=== PATIENT | female | born 1940 | race Caucasian/White ===

== ENCOUNTER 2020-03-08 17:47 | Inpatient (IN) | payer MEDICARE ==
[~2020-03-08] VITALS: Ht 160 cm; Wt 90.0 kg
[2020-03-08] MEDS ORDERED: DEXAMETHASONE SOD PHOSPHATE 4 MG INJ IV ONE (18:00)
[2020-03-08] MEDS ORDERED: AZITHROMYCIN IV 500 MG in IV DEXTROSE 5% 250 ML IV ONE (18:00)
[2020-03-08] MEDS ORDERED: CEFTRIAXONE 1 G in IV DEXTROSE 5% 50 ML IV ONE (18:00)
[2020-03-08] MEDS ORDERED: ACETAMINOPHEN ES 500 MG TABLET PO ONE (18:00)
[2020-03-08] MEDS ORDERED: ATOR10TA PO (18:22)
[2020-03-08] MEDS ORDERED: CHOL2000 PO (18:22)
[2020-03-08] MEDS ORDERED: METO-357 PO (18:22)
[2020-03-08] MEDS ORDERED: LATA2.5D15 EACHEYE (18:22)
[2020-03-08 18:50] LABS: HEMOGLOBIN 14.1 g/dL (10.9-14.3); MEAN CORPUSCULAR HEMOGLOBIN 31.2 uug (24.7-32.8)
[2020-03-08 18:56] LABS: BASOPHILS % (AUTO) 0.1 % (0.0-2.0); HEMATOCRIT 41.5 % (31.2-41.9); LYMPHOCYTES # (AUTO) 0.8 K/uL (20.0-40.0); LYMPHOCYTES % (AUTO) 14.4 % (20.5-51.5); MEAN CORPUSCULAR HGB CONC 34 g/dL (32.3-35.6); MEAN CORPUSCULAR VOLUME 91.8 fL (75.5-95.3); MONOCYTES # (AUTO) 0.7 K/uL (2.0-10.0); NEUTROPHILS # (AUTO) 4.1 K/uL (1.8-8.9); NEUTROPHILS % (AUTO) 72.5 % (38.5-71.5); PLATELET COUNT (AUTO) 90 K/uL (179-408); RED BLOOD CELL COUNT(AUTO) 4.52 MIL/uL (3.63-4.92); WHITE BLOOD COUNT (AUTO) 5.7 K/uL (3.8-11.8)
[2020-03-08 19:05] LABS: BILIRUBIN,DIRECT 0.5 mg/dL (0.0-0.2); BILIRUBIN,TOTAL 1.2 mg/dL (0.2-1.0); CREATININE 1.1 mg/dL (0.6-1.3); MAGNESIUM 1.8 mg/dL (1.8-2.4); PHOSPHOROUS 2.9 mg/dL (2.5-4.9); TOTAL PROTEIN, SERUM 7.7 g/dL (6.4-8.2)
[2020-03-08] MEDS ORDERED: AZITHROMYCIN 500MG/ D5W 250ML IVPB **ER PYXIS ONLY IV ONE (19:06)
[2020-03-08] MEDS ORDERED: CEFTRIAXONE /D5W 50ML IVPB **ER PYXIS IV ONE (19:06)
[2020-03-08] MEDS ORDERED: ACETAMINOPHEN ES 500 MG TABLET ONE (19:06)
[2020-03-08] MEDS ORDERED: DEXAMETHASONE SOD PHOSPHATE 10 MG INJ ONE (19:06)
[2020-03-08 19:13] LABS: THYROID STIMULATING HORMONE 2.639 mIU/mL (0.358-3.740)
[2020-03-08 19:40] LABS: LYMPHOCYTES % (MANUAL) 14 % (20-40); MONOCYTES % (MANUAL) 13 % (2-10); NEUTROPHILS % (MANUAL) 73 % (42-75)
[2020-03-08] MEDS ORDERED: SWABABLE VALVE TRANSFER SET EA MC ONE (19:40)
[2020-03-08] MEDS ORDERED: IV NORMAL SALINE 250 ML IV ONE (19:41)
[2020-03-08] MEDS ORDERED: IOHEXOL 350 100 ML INFUS..BTL ONE (19:41)
--- NOTE | 2020-03-08 19:55 | NUR ---
Patient taken to CT, consent complete. Patient in no acute distress. COVID +
[2020-03-08] MEDS ORDERED: POTASSIUM CHLORIDE 20 MEQ TAB.PRT.SR PO ONE (20:45)
[2020-03-08] MEDS ORDERED: POTASSIUM CHLORIDE 20 MEQ TAB.PRT.SR ONE (21:08)
--- NOTE | 2020-03-08 21:22 | NUR ---
Patient in bed, no acute distress noted. VSS
--- NOTE | 2020-03-08 22:30 | NUR ---
All patient needs attended and met. No acute distress at this time. VSS. WIll continue to monitor patient. Frequent visual checks ongoing. Daughter updated regarding pending inpatient admission.
[2020-03-08] MEDS ORDERED: TEMAZEPAM 15 MG CAPSULE PO PRN (23:00)
[2020-03-08] MEDS ORDERED: MAGNESIUM HYDROXIDE 30 ML LIQUID UDC PO PRN (23:00)
--- NOTE | 2020-03-08 23:03 | NUR ---
Report to Adelina GONZALES on Tele. Pt. admitted to Telemetry , under care of Dr. Franks Belongs List completed
--- NOTE | 2020-03-08 23:35 | NUR ---
RECEIVED PT FROM ER VIA [facility]. UNDER DR. WHEATLEY. DX:COVID 19. PT IN NO ACUTE DISTRESS. PT ON ROOM AIR. BELONGING LIST DONE. CORRECTION ASSESSMENT DONE. ADMISSION PROCESS AND CARE PLAN INITIATED. SAFETY AND COMFORT PROVIDED. WILL CONTINUE TO MONITOR.
[2020-03-08] MEDS ORDERED: ALBUTEROL SULFATE 2.5 MG/3 ML NEBU NEB PRN (23:45)
[2020-03-08 23:59] VITALS: BP 133/67
[2020-03-09 04:20] VITALS: BP 112/67
[2020-03-09] MEDS: PANTOPRAZOLE SODIUM 40 MG TABLET.DR PO SCH (06:26)
--- NOTE | 2020-03-09 06:35 | NUR ---
PT SLEPT INTERMITTENTLY. PT IN NO ACUTE DISTRESS. IV INTACT. PT TOLERATING ROOM AIR. SAFETY AND COMFORT PROVIDED. WILL ENDORSE TO INCOMING NURSE FOR CONTINUITY OF CARE.
[2020-03-09 07:13] LABS: BASOPHILS % (AUTO) 0.1 % (0.0-2.0); HEMOGLOBIN 13.5 g/dL (10.9-14.3); LYMPHOCYTES # (AUTO) 0.5 K/uL (20.0-40.0); LYMPHOCYTES % (AUTO) 13.3 % (20.5-51.5); MEAN CORPUSCULAR HEMOGLOBIN 31.6 uug (24.7-32.8); MEAN CORPUSCULAR HGB CONC 35 g/dL (32.3-35.6); MEAN CORPUSCULAR VOLUME 91.4 fL (75.5-95.3); MONOCYTES # (AUTO) 0.2 K/uL (2.0-10.0); MONOCYTES % (AUTO) 5.9 % (0.0-11.0); NEUTROPHILS # (AUTO) 2.8 K/uL (1.8-8.9); NEUTROPHILS % (AUTO) 80.7 % (38.5-71.5); PLATELET COUNT (AUTO) 84 K/uL (179-408); RED BLOOD CELL COUNT(AUTO) 4.27 MIL/uL (3.63-4.92); WHITE BLOOD COUNT (AUTO) 3.5 K/uL (3.8-11.8)
[2020-03-09] MEDS ORDERED: ALBUTEROL SULFATE 8 GM HFA.AER.AD IH PRN (07:45)
[2020-03-09 07:51] LABS: BILIRUBIN,TOTAL 0.7 mg/dL (0.2-1.0); CREATININE 0.9 mg/dL (0.6-1.3); MAGNESIUM 1.9 mg/dL (1.8-2.4); PHOSPHOROUS 3.2 mg/dL (2.5-4.9); POTASSIUM 3.9 mmol/L (3.5-5.1); TOTAL PROTEIN, SERUM 7.3 g/dL (6.4-8.2)
[2020-03-09] MEDS ORDERED: ENOXAPARIN SODIUM 40 MG/0.4 ML DISP.SYRIN SQ SCH (09:00)
[2020-03-09] MEDS: CHOLECALCIFEROL 1,000 UNIT TABLET PO SCH (09:59)
[2020-03-09] MEDS: DEXAMETHASONE SOD PHOSPHATE 4 MG INJ IV SCH (10:00)
[2020-03-09] MEDS: ASCORBIC ACID 500 MG TABLET PO SCH ×2 (10:31→21:02)
[2020-03-09 11:46] VITALS: BP 113/71
[2020-03-09 13:38] LABS: *BILIRUBIN,URIN NEGATIVE (NEGATIVE); *BLOOD, URINE NEGATIVE (NEGATIVE); *CLARITY,URINE CLEAR (CLEAR); *COLOR,URINE YELLOW (YELLOW); *KETONES,URINE 1+ (NEGATIVE); *UROBILINOGEN,URINE 0.2 E.U./dl (NORMAL); LEUKOCYTE ESTERASE ,URINE NEGATIVE (NEGATIVE); NITRITE, URINE NEGATIVE (NEGATIVE); PH,URINE 6.5 (5.0-8.0); UGLUCOSE NEGATIVE (NEGATIVE)
[2020-03-09] MEDS: ENOXAPARIN SODIUM 30 MG/0.3 ML DISP.SYRIN SUBCUT SCH (13:54)
[2020-03-09 14:07] LABS: BACTERIA,URINE NONE SEEN /HPF (NONE SEEN); RBC,URINE 0-3 /HPF (0-3); SQUAMOUS EPITHELIAL CELL,UR FEW /HPF (NONE SEEN); WBC,URINE 0-3 /HPF (0-3)
[2020-03-09 15:36] VITALS: BP 115/61
[2020-03-09] MEDS: LATANOPROST OPHT DROP 2.5 ML BOTTLE EACHEYE SCH (18:21)
--- NOTE | 2020-03-09 18:45 | NUR ---
Patient remains alert, oriented x4, not in any form of distress, on room air, ambulatory. She denies any pain or discomfort. Patient is compliant with medications. Needs attended to promptly. Call light and frequently used items placed within patient's reach. Informed Dr. España during the shift regarding Lovenox and current platelet count of 84, no signs of bleeding and per MD discontinue Lovenox 40 mg and give Lovenox 30mg Subq daily. Will continue to monitor and will endorse accordingly.
[2020-03-09 20:37] VITALS: BP 124/69
[2020-03-09] MEDS ORDERED: ATORVASTATIN 10 MG TABLET PO SCH (21:00)
[2020-03-09] MEDS: DOCUSATE SODIUM 100 MG CAPSULE PO SCH (21:02)
[2020-03-09] MEDS: HYDROCODONE/APAP 5-325MG TABLET PO PRN (23:51)
[2020-03-10] VITALS: BP 140/77
--- NOTE | 2020-03-10 02:14 | NUR ---
awake alert and oriented x4. Watching TV upon initial rounds. Needs attended. Compliant with meds. OOB to the BR with assist. Voiding well without difficulty. Medicated for pain with relief noted. Fall precautions maintained. All due meds given as needed. On telemetry, patient Sinus Rhythm on the monitor. Denies any chest pains nor any discomfort. Will monitor patient. On Lovenox for VTE. No bleeding noted.
[2020-03-10 04:00] VITALS: BP 138/78
[2020-03-10] MEDS: PANTOPRAZOLE SODIUM 40 MG TABLET.DR PO SCH (06:06)
[2020-03-10] MEDS: CHOLECALCIFEROL 1,000 UNIT TABLET PO SCH (10:01)
[2020-03-10] MEDS: DEXAMETHASONE SOD PHOSPHATE 4 MG INJ IV SCH (10:01)
[2020-03-10] MEDS: ASCORBIC ACID 500 MG TABLET PO SCH ×2 (10:01→20:18)
[2020-03-10] MEDS: ENOXAPARIN SODIUM 30 MG/0.3 ML DISP.SYRIN SUBCUT SCH (10:03)
[2020-03-10] MEDS: ACETAMINOPHEN 325 MG TABLET PO PRN ×2 (10:26→20:18)
[2020-03-10 12:30] VITALS: BP 144/83
[2020-03-10 16:24] VITALS: BP 111/43
--- NOTE | 2020-03-10 19:30 | NUR ---
RECEIVED PT AWAKE, ALERT AND ORIENTEDX4.PT IN NO ACUTE DISTRESS. IV INTACT. PT ON 2L NASAL CANNULA. SAFETY AND COMFORT PROVIDED. WILL CONTINUE TO MONITOR.
[2020-03-10] MEDS: DOCUSATE SODIUM 100 MG CAPSULE PO SCH (20:18)
[2020-03-10 20:24] VITALS: BP 144/80
[2020-03-10] MEDS: LATANOPROST OPHT DROP 2.5 ML BOTTLE EACHEYE SCH (21:14)
[2020-03-11 04:00] VITALS: BP 128/67
[2020-03-11 04:07] VITALS: BP 144/90
--- NOTE | 2020-03-11 05:25 | NUR ---
PT SLEPT INTERMITTENTLY . PT IN NO ACUTE DISTRESS. IV INTACT. PT GIVEN TYLENOL 650MG PRN AT 2018H FOR PAIN PER PT REQUESTED. PT DAUGHTER DAMIEN CALLED AND GIVEN UPDATE REGARDING HER MOTHER. DAUGHTER SAID PT SHOULD HAVE WALKER AND SHOULD NOTIFY DOCTOR. . SAFETY AND COMFORT PROVIDED. ALL NEEDS ARE MET. PT ON 2L NASAL CANNULA. WILL ENDORSE TO INCOMING FOR CONTINUITY OF CARE.
[2020-03-11] MEDS: PANTOPRAZOLE SODIUM 40 MG TABLET.DR PO SCH (06:40)
--- NOTE | 2020-03-11 06:43 | NUR ---
PT GIVEN TYLENOL PRN PER PT REQUEST. PT TOLERATED IT WELL.
[2020-03-11] MEDS: DEXAMETHASONE SOD PHOSPHATE 4 MG INJ IV SCH (08:56)
[2020-03-11] MEDS: ASCORBIC ACID 500 MG TABLET PO SCH (08:57)
[2020-03-11] MEDS: CHOLECALCIFEROL 1,000 UNIT TABLET PO SCH (08:57)
[2020-03-11 11:02] VITALS: BP 136/72
[2020-03-11] MEDS: ENOXAPARIN SODIUM 30 MG/0.3 ML DISP.SYRIN SUBCUT SCH (12:53)
[2020-03-11 15:02] VITALS: BP 136/79
--- NOTE | 2020-03-11 15:12 | NUR ---
In AM patient was initially on 4L NC saturating 81-82%, noted labored breathing and SOB. Placed on non-rebreather 15L, saturating 90-91%, patient seemed calmer and stated breathing better. No other complaints at this time. Will continue to monitor. Talked to daughter Sonja for updates.
[2020-03-11] MEDS: LATANOPROST OPHT DROP 2.5 ML BOTTLE EACHEYE SCH (18:13)
--- NOTE | 2020-03-11 19:59 | NUR ---
Patient stable throughout shift, still on non-rebreather 15L, denied SOB or distress at this time. Safety precaution in place. No other complaints at this time. Will endorse
[2020-03-11 20:00] VITALS: BP_SYST 149; BP_SYST 159; BP_DIAS 78; BP_DIAS 88
[2020-03-12] MEDS: ASCORBIC ACID 500 MG TABLET PO SCH ×4 (02:33→20:51)
[2020-03-12] MEDS: DOCUSATE SODIUM 100 MG CAPSULE PO SCH ×2 (02:33→20:51)
[2020-03-12] MEDS: HYDROCODONE/APAP 5-325MG TABLET PO PRN (02:36)
--- NOTE | 2020-03-12 02:36 | NUR ---
COMPLAINED OF BACK PAIN , ASSESSED DEGREE OF PAIN AND ANY OTHER DISCOMFORT, APPEARS TO BE HAVING DYSPNEA, KEY ACCOUNT EXECUTIVE ADRIANNA CONTRERAS NOTIFIED , STAT ABG DONE AND PREPARED PT FOR HIGH FLOW OXYGEN, 50L/100% [id number],PT ABLE TO RELAX AND REST, WILL CONTINUE TO MONITOR.
[2020-03-12 04:00] VITALS: BP 125/67
--- NOTE | 2020-03-12 06:00 | NUR ---
PT WAS ON NRBMASK AT 15L, WITH SOB WHEN GETTING UP TO GO TO BR, ASSISTED TO BEDSIDE COMMODE, VOIDED FREELY WELL, NEEDS ATTENDED TO,TRIGHT EYE BLINDNESS, SAFETY PREC MAINTAINED AND OBSERVED.IV SITESON RT ANTECUBITAL ANDRT HAND BOTH INTACT AND PATENT.SLEPT ON AND OFF, SPOKE WITH DTR REGARDING PATIENT'S CONDITION, TOLERATING NRBMASK.
[2020-03-12 06:01] LABS: ABG HCO3 21.9 mmol/L; ABG PCO2 31.8 mmHg (35.0-45.0); ABG PH 7.455 (7.350-7.450); ABG PO2 49.2 mmHg (75.0-100.0); ABG SITE LEFT RADIAL; ABG TOTAL HEMOGLOBIN 15.2 G/dL (12.0-16.0); COHb 1.1 % (0.5-1.5); MetHb 0.2 % (0.0-1.5); O2Hb 85.2 % (94.0-97.0)
[2020-03-12 06:07] LABS: HEMATOCRIT 42.5 % (31.2-41.9); HEMOGLOBIN 14.1 g/dL (10.9-14.3); LYMPHOCYTES # (AUTO) 0.3 K/uL (20.0-40.0); LYMPHOCYTES % (AUTO) 1.6 % (20.5-51.5); MEAN CORPUSCULAR HEMOGLOBIN 30.5 uug (24.7-32.8); MEAN CORPUSCULAR HGB CONC 33 g/dL (32.3-35.6); MEAN CORPUSCULAR VOLUME 92.2 fL (75.5-95.3); MONOCYTES # (AUTO) 1.1 K/uL (2.0-10.0); MONOCYTES % (AUTO) 5.4 % (0.0-11.0); NEUTROPHILS # (AUTO) 18.9 K/uL (1.8-8.9); PLATELET COUNT (AUTO) 127 K/uL (179-408); RED BLOOD CELL COUNT(AUTO) 4.61 MIL/uL (3.63-4.92); WHITE BLOOD COUNT (AUTO) 20.3 K/uL (3.8-11.8)
[2020-03-12] MEDS: PANTOPRAZOLE SODIUM 40 MG TABLET.DR PO SCH ×2 (07:00→10:01)
[2020-03-12 07:27] LABS: BILIRUBIN,TOTAL 1.1 mg/dL (0.2-1.0); MAGNESIUM 2.1 mg/dL (1.8-2.4); PHOSPHOROUS 2.9 mg/dL (2.5-4.9); POTASSIUM 3.5 mmol/L (3.5-5.1); TOTAL PROTEIN, SERUM 7.4 g/dL (6.4-8.2)
[2020-03-12] MEDS: CHOLECALCIFEROL 1,000 UNIT TABLET PO SCH ×2 (09:00→10:00)
[2020-03-12 09:23] VITALS: BP 133/79
[2020-03-12] MEDS: ENOXAPARIN SODIUM 30 MG/0.3 ML DISP.SYRIN SUBCUT SCH (09:59)
[2020-03-12] MEDS: DEXAMETHASONE SOD PHOSPHATE 4 MG INJ IV SCH (10:00)
[2020-03-12] MEDS: ACETAMINOPHEN 325 MG TABLET PO PRN (10:01)
--- NOTE | 2020-03-12 10:45 | NUR ---
PT PLACED ON BIPAP DUE TO O2 DESATURATION AND INCREASED WOB ON 50LPM HFNC, AND 15LPM NRB MASK. PT ON SETTINGS GIVEN BY DR. MCDANIELS, IPAP 16, EPAP 6, RATE 16, AND 100% FIO2. SPO2 IMPROVED TO 92%, RN NOTIFIED. PT IS TOLERATING BIPAP WELL. WILL CONTINUE TO MONITOR.
[2020-03-12] MEDS ORDERED: CEFTRIAXONE 1 G in IV DEXTROSE 5% 50 ML IV SCH (12:15)
[2020-03-12] MEDS ORDERED: AZITHROMYCIN IV 500 MG in IV DEXTROSE 5% 250 ML IV SCH (12:15)
[2020-03-12 12:25] VITALS: BP 114/78
--- NOTE | 2020-03-12 14:18 | NUR ---
Awaiting for IV pole and pump, and primary IV tube. Central supply aware
[2020-03-12] MEDS: AZITHROMYCIN IV 500 MG in IV DEXTROSE 5% 250 ML IV SCH (14:47)
[2020-03-12 15:35] VITALS: BP 138/76
[2020-03-12] MEDS ORDERED: REMDESIVIR (CHARGED) 200 MG in IV NORMAL SALINE 210 ML IV ONE ×2 (16:00→18:00)
--- NOTE | 2020-03-12 16:10 | NUR ---
Patient currently on Bipap 100% saturating 87-88%, noted labored breathing. made aware. STAT ABG ordered. Patient unable to tolerate PO meds in AM d/t severe SOB.
[2020-03-12 16:26] LABS: ABG BASE EXCESS 0.2 mmol/L; ABG PCO2 36.3 mmHg (35.0-45.0); ABG PH 7.438 (7.350-7.450); ABG SITE LEFT RADIAL; MetHb 0.2 % (0.0-1.5); VENT MODE BIPAP
[2020-03-12] MEDS: CEFTRIAXONE 1 G in IV DEXTROSE 5% 50 ML IV SCH (16:47)
--- NOTE | 2020-03-12 17:26 | NUR ---
Informed Dr. Ponce regarding Stat ABG results and saturation of 89-90%. Informed pulmonology and informed Dr. Boyce and stated not indicated for intubation at this time.
[2020-03-12 18:57] VITALS: BP 141/80
[2020-03-12] MEDS: LATANOPROST OPHT DROP 2.5 ML BOTTLE EACHEYE SCH (19:01)
[2020-03-12 20:00] VITALS: BP 155/81
--- NOTE | 2020-03-12 23:34 | NUR ---
Patient saturating 90-91% on Bipap 100%, comfortable, needs met. Endorsement to receiving nurse given. Not in distress at this time. Safety precaution in place
[2020-03-13] VITALS: BP 154/90
[2020-03-13] MEDS: HYDROCODONE/APAP 5-325MG TABLET PO PRN (00:21)
[2020-03-13 04:00] VITALS: BP 151/95
[2020-03-13] MEDS: PANTOPRAZOLE SODIUM 40 MG TABLET.DR PO SCH (06:15)
--- NOTE | 2020-03-13 08:00 | NUR ---
Pt on bipap 02/03 Spo2 of 93%. Pt comfortable breathing. No grimacing and using of accessory muscles. Bipap mask with good seal. 0900 Gave oral Meds. As soon as mask was taken off. Pt's o2 sat desaturated to 72%. Pt was unable to eat food for breakfast. Will keep pt NPO secondary to status of respiration. Call light is within reach. Pt able to communicate with simple gestures ie nodding and thumbs up/ down.
[2020-03-13 08:21] LABS: HEMATOCRIT 41.9 % (31.2-41.9); LYMPHOCYTES # (AUTO) 0.4 K/uL (20.0-40.0); LYMPHOCYTES % (AUTO) 2.4 % (20.5-51.5); MEAN CORPUSCULAR HEMOGLOBIN 30.6 uug (24.7-32.8); MEAN CORPUSCULAR HGB CONC 33 g/dL (32.3-35.6); MEAN CORPUSCULAR VOLUME 91.8 fL (75.5-95.3); MONOCYTES % (AUTO) 6.9 % (0.0-11.0); NEUTROPHILS # (AUTO) 13.5 K/uL (1.8-8.9); NEUTROPHILS % (AUTO) 90.7 % (38.5-71.5); PLATELET COUNT (AUTO) 123 K/uL (179-408); RED BLOOD CELL COUNT(AUTO) 4.56 MIL/uL (3.63-4.92); WHITE BLOOD COUNT (AUTO) 14.9 K/uL (3.8-11.8)
[2020-03-13 08:40] LABS: BILIRUBIN,DIRECT 0.4 mg/dL (0.0-0.2); POTASSIUM 3.7 mmol/L (3.5-5.1); TOTAL PROTEIN, SERUM 7.2 g/dL (6.4-8.2)
[2020-03-13] MEDS: CHOLECALCIFEROL 1,000 UNIT TABLET PO SCH (08:52)
[2020-03-13] MEDS: DEXAMETHASONE SOD PHOSPHATE 4 MG INJ IV SCH (08:52)
[2020-03-13] MEDS: ASCORBIC ACID 500 MG TABLET PO SCH ×2 (08:52→20:24)
[2020-03-13] MEDS: ENOXAPARIN SODIUM 30 MG/0.3 ML DISP.SYRIN SUBCUT SCH (08:53)
[2020-03-13 11:51] VITALS: BP 150/81
[2020-03-13] MEDS ORDERED: REMDESIVIR (CHARGED) 100 MG in IV NORMAL SALINE 230 ML IV SCH ×2 (12:15→18:00)
[2020-03-13] MEDS: AZITHROMYCIN IV 500 MG in IV DEXTROSE 5% 250 ML IV SCH (13:03)
[2020-03-13 15:36] VITALS: BP 150/93
[2020-03-13] MEDS: CEFTRIAXONE 1 G in IV DEXTROSE 5% 50 ML IV SCH (15:41)
[2020-03-13] MEDS: REMDESIVIR (CHARGED) 100 MG in IV NORMAL SALINE 100 ML IV SCH (17:53)
[2020-03-13] MEDS: LATANOPROST OPHT DROP 2.5 ML BOTTLE EACHEYE SCH (17:54)
--- NOTE | 2020-03-13 18:00 | NUR ---
Pt remained comfortable in bipap. Pt denies any c/o pain. call light is within reach.
[2020-03-13 20:00] VITALS: BP 152/76
[2020-03-13] MEDS: DOCUSATE SODIUM 100 MG CAPSULE PO SCH (20:24)
[2020-03-14] VITALS: BP 152/83
[2020-03-14 04:00] VITALS: BP 150/81
--- NOTE | 2020-03-14 05:42 | NUR ---
No change on bipap settings. Pt remained with o2 sat of 93-95%. Call light is within reach.
[2020-03-14] MEDS: PANTOPRAZOLE SODIUM 40 MG TABLET.DR PO SCH (07:00)
[2020-03-14 08:37] LABS: BILIRUBIN,DIRECT 0.4 mg/dL (0.0-0.2); BILIRUBIN,TOTAL 0.7 mg/dL (0.2-1.0); CREATININE 0.9 mg/dL (0.6-1.3); POTASSIUM 3.6 mmol/L (3.5-5.1); TOTAL PROTEIN, SERUM 7.2 g/dL (6.4-8.2)
[2020-03-14] MEDS: CHOLECALCIFEROL 1,000 UNIT TABLET PO SCH (09:00)
[2020-03-14] MEDS: ASCORBIC ACID 500 MG TABLET PO SCH ×2 (09:00→21:00)
[2020-03-14] MEDS: DEXAMETHASONE SOD PHOSPHATE 4 MG INJ IV SCH (09:03)
[2020-03-14] MEDS: ENOXAPARIN SODIUM 30 MG/0.3 ML DISP.SYRIN SUBCUT SCH (09:04)
[2020-03-14 09:07] LABS: BASOPHILS % (AUTO) 0.2 % (0.0-2.0); HEMATOCRIT 42.1 % (31.2-41.9); HEMOGLOBIN 14.1 g/dL (10.9-14.3); LYMPHOCYTES # (AUTO) 0.2 K/uL (20.0-40.0); LYMPHOCYTES % (AUTO) 2.1 % (20.5-51.5); MEAN CORPUSCULAR HGB CONC 34 g/dL (32.3-35.6); MEAN CORPUSCULAR VOLUME 92.4 fL (75.5-95.3); MONOCYTES # (AUTO) 1.1 K/uL (2.0-10.0); NEUTROPHILS # (AUTO) 10.4 K/uL (1.8-8.9); NEUTROPHILS % (AUTO) 88.7 % (38.5-71.5); PLATELET COUNT (AUTO) 136 K/uL (179-408); RED BLOOD CELL COUNT(AUTO) 4.56 MIL/uL (3.63-4.92); WHITE BLOOD COUNT (AUTO) 11.7 K/uL (3.8-11.8)
[2020-03-14 11:20] VITALS: BP 151/86
[2020-03-14] MEDS: CEFTRIAXONE 1 G in IV DEXTROSE 5% 50 ML IV SCH (15:00)
[2020-03-14 15:22] VITALS: BP 142/83
[2020-03-14] MEDS: AZITHROMYCIN IV 500 MG in IV DEXTROSE 5% 250 ML IV SCH (18:02)
[2020-03-14] MEDS: LATANOPROST OPHT DROP 2.5 ML BOTTLE EACHEYE SCH (18:03)
[2020-03-14] MEDS: REMDESIVIR (CHARGED) 100 MG in IV NORMAL SALINE 100 ML IV SCH (19:14)
[2020-03-14 20:00] VITALS: BP 152/81
--- NOTE | 2020-03-14 20:15 | NUR ---
Received patient in bed . awake with Bipap on at 100 % saturating 90-91%.HOB elevated. Denies pain. Able to communicate through nodding and thumbs up/down.Midline on right upper arm patent and intact. Iv on left hand intact.Continue on isolation for covid .Will continue to monitor.
[2020-03-14] MEDS: DOCUSATE SODIUM 100 MG CAPSULE PO SCH (21:00)
[2020-03-15] VITALS (12 sets, daily range): BP systolic 130–154; BP diastolic 72–93
--- NOTE | 2020-03-15 02:05 | NUR ---
Patient Bipap went off for few seconds d/t it wasn't plugged properly. Patient was on labored breathing.HR went to 140-160.Patient connected back to bipap with same setting.Tolerated well 02 sat 91-92%.Patient able to follow simple commands.Will continue to monitor.
[2020-03-15] MEDS: PANTOPRAZOLE SODIUM 40 MG TABLET.DR PO SCH (06:03)
--- NOTE | 2020-03-15 07:03 | NUR ---
Bipap functioning well. Patient remained with O2 sat at 92-93%.On Tele SR and sinus tachy.Will endorsed to oncoming shift.
[2020-03-15] MEDS: CHOLECALCIFEROL 1,000 UNIT TABLET PO SCH (08:13)
[2020-03-15] MEDS: ASCORBIC ACID 500 MG TABLET PO SCH ×2 (08:13→21:00)
[2020-03-15] MEDS: DEXAMETHASONE SOD PHOSPHATE 4 MG INJ IV SCH (08:13)
[2020-03-15] MEDS: ENOXAPARIN SODIUM 30 MG/0.3 ML DISP.SYRIN SUBCUT SCH (08:14)
[2020-03-15 12:40] LABS: BILIRUBIN,DIRECT 0.5 mg/dL (0.0-0.2); BILIRUBIN,TOTAL 1.2 mg/dL (0.2-1.0); CREATININE 0.9 mg/dL (0.6-1.3); TOTAL PROTEIN, SERUM 7.2 g/dL (6.4-8.2)
[2020-03-15 12:41] LABS: BASOPHILS # (AUTO) 0.1 K/uL (0.0-8.0); BASOPHILS % (AUTO) 0.4 % (0.0-2.0); HEMOGLOBIN 15.4 g/dL (10.9-14.3); LYMPHOCYTES # (AUTO) 0.3 K/uL (20.0-40.0); LYMPHOCYTES % (AUTO) 1.5 % (20.5-51.5); MEAN CORPUSCULAR HEMOGLOBIN 30.6 uug (24.7-32.8); MEAN CORPUSCULAR HGB CONC 33 g/dL (32.3-35.6); MEAN CORPUSCULAR VOLUME 93.1 fL (75.5-95.3); MONOCYTES # (AUTO) 1.5 K/uL (2.0-10.0); MONOCYTES % (AUTO) 8.7 % (0.0-11.0); NEUTROPHILS # (AUTO) 15.3 K/uL (1.8-8.9); NEUTROPHILS % (AUTO) 89.4 % (38.5-71.5); PLATELET COUNT (AUTO) 171 K/uL (179-408); RED BLOOD CELL COUNT(AUTO) 5.05 MIL/uL (3.63-4.92); WHITE BLOOD COUNT (AUTO) 17.2 K/uL (3.8-11.8)
[2020-03-15] MEDS: AZITHROMYCIN IV 500 MG in IV DEXTROSE 5% 250 ML IV SCH (13:12)
[2020-03-15] MEDS: CEFTRIAXONE 1 G in IV DEXTROSE 5% 50 ML IV SCH (14:25)
[2020-03-15] MEDS ORDERED: ETOMIDATE 20 MG/10 ML VIAL IV ONE (16:30)
[2020-03-15] MEDS ORDERED: SUCCINYLCHOLINE CHLORIDE 200 MG/10 ML VIAL IV ONE (16:30)
[2020-03-15] MEDS: REMDESIVIR (CHARGED) 100 MG in IV NORMAL SALINE 100 ML IV SCH (17:07)
[2020-03-15] MEDS: LATANOPROST OPHT DROP 2.5 ML BOTTLE EACHEYE SCH (17:08)
--- NOTE | 2020-03-15 18:33 | NUR ---
tried calling bryan at number [phone] and spouse [phone], for consent for plasma transfusion, no answer, will try to get it from patient self.
--- NOTE | 2020-03-15 18:40 | NUR ---
called lab spoke to Ana Maria to followed up for convalescent plasma status, per Rodney she ll call me back with information
--- NOTE | 2020-03-15 18:56 | NUR ---
asked patient to give consent for convalescent plasma, patient stated get it from her grand daughter name Pepe, called granddaughter received telephone consent with witness of another nurse
--- NOTE | 2020-03-15 19:56 | NUR ---
spoke to lab regarding plasma transfusion, ready for coal picker, endorsed to next shift
[2020-03-15] MEDS ORDERED: ACETAMINOPHEN 650 MG/20.3 ML LIQUID UDC PO ONE (20:00)
[2020-03-15] MEDS ORDERED: diphenhydrAMINE 50 MG/1 ML VIAL IV ONE (20:00)
[2020-03-15] MEDS ORDERED: TOCILIZUMAB 400 MG in IV NORMAL SALINE 80 ML IV ONE ×2 (20:00→20:30)
--- NOTE | 2020-03-15 20:30 | NUR ---
Received Tocilicumab from Pharmacy. Given orders to give Benadryl & Tylenol then 30 minutes to administer medication BEFORE giving Plasma. Administered Benadryl& Tylenol at 2033. Will monitor and assess.
[2020-03-15] MEDS: ACETAMINOPHEN 325 MG TABLET PO PRN (20:32)
[2020-03-15] MEDS: DOCUSATE SODIUM 100 MG CAPSULE PO SCH (21:00)
--- NOTE | 2020-03-15 21:10 | NUR ---
Hung Tocilicumab at this time. Upon completion will administer Plasma per orders.
--- NOTE | 2020-03-16 | NUR ---
RECEIVED REPORT FROM PATIENTS DAUGHTER. TURBINE MECHANIC AND STEAMER GUM CANDY TO BE NOTIFIED TO NOT MENTION PASSING OF PATIENTS . WILL ENDORSE TO ONCOMING NURSE.
[2020-03-16 00:05] VITALS: BP 136/83
--- NOTE | 2020-03-16 00:05 | NUR ---
Plasma infusion completed at this time. No adverse effects. VSS. No acute distress. Will monitor and assess.
[2020-03-16 00:32] VITALS: BP 130/88
--- NOTE | 2020-03-16 02:26 | NUR ---
INSURANCE ADJUSTER DO NOT NOTIFY PATIENT IN 301-A THAT HER HAS . DAUGHTER OF PATIENT HAS CALLED AND REPORTED MESSAGED AND SAID TO NOT TELL HER MOTHER (PATIENT).
[2020-03-16 04:35] VITALS: BP 144/93
[2020-03-16] MEDS: PANTOPRAZOLE SODIUM 40 MG TABLET.DR PO SCH (06:06)
--- NOTE | 2020-03-16 06:39 | NUR ---
Patient to be handed off to AM nurse. Safety measures in place. Plan of care continued. Patient in no distress. Stable condition. Will endorse all pertinent information.
--- NOTE | 2020-03-16 07:30 | NUR ---
Patient resting in bed. Continues to be on BiPAP. Safety precautions in place.
[2020-03-16] MEDS: DEXAMETHASONE SOD PHOSPHATE 4 MG INJ IV SCH (09:59)
[2020-03-16] MEDS: ASCORBIC ACID 500 MG TABLET PO SCH (10:00)
[2020-03-16] MEDS: CHOLECALCIFEROL 1,000 UNIT TABLET PO SCH (10:00)
[2020-03-16] MEDS: ENOXAPARIN SODIUM 30 MG/0.3 ML DISP.SYRIN SUBCUT SCH (10:05)
[2020-03-16 11:08] LABS: EOSINOPHILS # (AUTO) 1.3 K/uL (0.0-0.7); EOSINOPHILS % (AUTO) 7.8 % (0.0-7.0); HEMATOCRIT 47.9 % (31.2-41.9); HEMOGLOBIN 15.7 g/dL (10.9-14.3); LYMPHOCYTES # (AUTO) 0.4 K/uL (20.0-40.0); LYMPHOCYTES % (AUTO) 2.2 % (20.5-51.5); MEAN CORPUSCULAR HEMOGLOBIN 30.6 uug (24.7-32.8); MEAN CORPUSCULAR HGB CONC 33 g/dL (32.3-35.6); MEAN CORPUSCULAR VOLUME 93.5 fL (75.5-95.3); MONOCYTES # (AUTO) 0.7 K/uL (2.0-10.0); MONOCYTES % (AUTO) 4.4 % (0.0-11.0); NEUTROPHILS # (AUTO) 14.2 K/uL (1.8-8.9); NEUTROPHILS % (AUTO) 85.6 % (38.5-71.5); PLATELET COUNT (AUTO) 161 K/uL (179-408); RED BLOOD CELL COUNT(AUTO) 5.12 MIL/uL (3.63-4.92); WHITE BLOOD COUNT (AUTO) 16.6 K/uL (3.8-11.8)
--- NOTE | 2020-03-16 11:15 | NUR ---
Patient found hypoxic, no pulse, no BP. CPR initiated. Code blue called. See Code Blue sheet
[2020-03-16 11:30] LABS: BILIRUBIN,DIRECT 0.7 mg/dL (0.0-0.2); BILIRUBIN,TOTAL 1.4 mg/dL (0.2-1.0); CREATININE 1.2 mg/dL (0.6-1.3); POTASSIUM 3.9 mmol/L (3.5-5.1); TOTAL PROTEIN, SERUM 7.3 g/dL (6.4-8.2)
[2020-03-16] MEDS ORDERED: PROPOFOL 100 ML IV PRN (12:00)
[2020-03-16] MEDS ORDERED: NOREPINEPHRINE BITARTRATE 8 MG in IV NORMAL SALINE 242 ML IV PRN (12:15)
[2020-03-16] MEDS ORDERED: EPINEPHRINE 1:10,000 1 MG/10 ML DISP.SYRIN ONE (12:25)
[2020-03-16] MEDS ORDERED: SODIUM BICARBONATE 8.4% 50 MEQ/50 ML DISP.SYRIN IV ONE ×2 (12:25→16:41)
[2020-03-16] MEDS ORDERED: CALCIUM CHLORIDE 1 GM/10 ML DISP.SYRIN IVP ONE (12:25)
--- NOTE | 2020-03-16 13:08 | NUR ---
Patient after 3 Code blues with the last one unsuccessful. Pronounced by Dr. Marley. Family informed by Dr. Marley. [facility] informed. Post mortem Care done. One family(son) allowed to see the patient.
--- NOTE | 2020-03-16 15:34 | NUR ---
2:48pm: SW called patient's granddaughter Deidre [phone] to follow-up with family after patient's . Deidre was available and receptive to talking to this SW. Family already aware of patient's passing. SW allowed Deidre to express her feelings, and provided grief support. Mortuary arrangements discussed, and Deidre stated that the family was trying to make arrangements at [facility], , but that they were waiting for confirmation. SW offered to provide additional resources for mortries, and Deidre expressed agreement. NEREYDA provided the following resources: [facility], [address] [address], [facility], [address] [place] [address], Macey stated that as soon as the arrangements were finalized, the family will contact the hospital with the information. SW expressed agreement.
[2020-03-16 16:08] LABS: BAND % (MANUAL) 2 % (0-10); EOSINOPHILS % (MANUAL) 6 % (0-8); LYMPHOCYTES % (MANUAL) 2 % (20-40); MONOCYTES % (MANUAL) 3 % (2-10); NEUTROPHILS % (MANUAL) 87 % (42-75)
[2020-03-16] MEDS ORDERED: EPINEPHRINE 1:10,000 1 MG/10 ML DISP.SYRIN IV ONE (16:41)
[2020-03-16] MEDS ORDERED: CALCIUM CHLORIDE 1 GM/10 ML DISP.SYRIN IV ONE (16:41)
--- NOTE | 2020-03-16 16:58 | NUR ---
Brought down to [facility]. Family still to call Mortuary information
--- NOTE | 2020-03-16 17:21 | NUR ---
[facility] called [facility], and spoke with Sedrick, to follow-up on the status of the mortuary arrangements. Sedrick informed this NEREYDA that the mortuary director would be calling back. NEREYDA instructed Sedrick to have the mortuary contact the unit nurse at [phone]. Addendum: 03/16/20 at 1723 by ENRIQUE DAWN CHRISTIAN Miller informed of above
--- NOTE | 2020-03-17 14:36 | NUR ---
NEREYDA received a voicemail message from Laurel at [facility]. NEREYDA called Laurel back [phone], who stated confirmation about being the mortuary the family has made arrangements at. Laurel stated that due to capacity limitations, it would take 2-3 days before they would be able to fish bait picker the patient's remains. Laurel stated that she would call this NEREYDA back tomorrow morning to provide additional information regarding pick-up day/time. NEREYDA expressed understanding. NEREYDA then informed Publishing Agent Doug about above, and provided Doug with [facility] and to Laurel. [facility], Laurel,
--- NOTE | 2020-03-18 11:31 | NUR ---
NEREYDA called Laurel at [facility] [phone] to follow-up on status of pick-up day/time. Laurel stated that the still do not have a pick-up time, given their ongoing capacity limitations. Laurel stated that they are working on making arrangements and would notify the hospital as soon as they are able to mushroom picker the patient's remains. NEREYDA provided Laurel with the phone number to the nursing office, and reminded Laurel that pick-ups can be done 24 hours a day. Laurel expressed understanding and stated that she would follow-up with the nursing office.
[2020-03-18 13:12] LABS: CRYPTOCOCCUS AB, SERUM Negative (Negative)
[2020-03-19 19:06] LABS: COCCIDIOIDES CF SERUM Negative (Neg:<1:2)
== END 2020-03-16 13:08 | disposition expired | DRG 177 ==
LOC: ER 17:49 → TELE3 23:20 → MEDSURG3 03-10 22:53 → TELE3 03-12 20:10
PROVIDERS: ADMIT Internal Medicine; ATTEND Internal Medicine
PROC: 5A09457 Assistance with Respiratory Ventilation, 24-96 Consecutive Hours, Continuous Positive Airway Pressure (ICD-10-PCS; principal; 2020-03-12)
PROC: XW033E5 Introduction of Remdesivir Anti-infective into Peripheral Vein, Percutaneous Approach, New Technology Group 5 (ICD-10-PCS; 2020-03-12)
PROC: 05H533Z Insertion of Infusion Device into Right Subclavian Vein, Percutaneous Approach (ICD-10-PCS; 2020-03-12)
PROC: XW13325 Transfusion of Convalescent Plasma (Nonautologous) into Peripheral Vein, Percutaneous Approach, New Technology Group 5 (ICD-10-PCS; 2020-03-15)
PROC: XW033H5 Introduction of Tocilizumab into Peripheral Vein, Percutaneous Approach, New Technology Group 5 (ICD-10-PCS; 2020-03-15)
PROC: 0BH18EZ Insertion of Endotracheal Airway into Trachea, Via Natural or Artificial Opening Endoscopic (ICD-10-PCS; 2020-03-16)
PROC: 5A12012 Performance of Cardiac Output, Single, Manual (ICD-10-PCS; 2020-03-16)
DX: U07.1 COVID-19 (principal); J96.01 Acute respiratory failure with hypoxia; J12.82 Pneumonia due to coronavirus disease 2019; J15.9 Unspecified bacterial pneumonia; D68.69 Other thrombophilia; J93.9 Pneumothorax, unspecified; T79.7XXA Traumatic subcutaneous emphysema, initial encounter; D69.6 Thrombocytopenia, unspecified; E66.9 Obesity, unspecified; E78.5 Hyperlipidemia, unspecified; E87.6 Hypokalemia; Z86.73 Personal history of transient ischemic attack (TIA), and cerebral infarction without residual deficits; M19.90 Unspecified osteoarthritis, unspecified site; I10 Essential (primary) hypertension; H54.61 Unqualified visual loss, right eye, normal vision left eye; Z68.35 Body mass index [BMI] 35.0-35.9, adult; X58.XXXA Exposure to other specified factors, initial encounter; Y93.9 Activity, unspecified; Y92.009 Unspecified place in unspecified non-institutional (private) residence as the place of occurrence of the external cause; Y99.9 Unspecified external cause status
CPT/HCPCS: 36415; 36600; 70030-TC; 71045; 71275; 83605; 83615; 83735; 84100; 84443; 85025; 85610; 85730; 86140; 86480; 86803; 86850; 86900; 86901; 87040; 87328; 87400; 87806; 92950; 93005; 94002; 94660; A4663; A9150; G0378; J0171; J0330; J0456; J0696; J1100; J1200; J1650; J3262; J3490; J3535; J7030; J7050; J7060; P9016-BL; P9017-BL; Q9967; U0003